=== PATIENT | male | born 2000 | race American Indian/Alaskan Native ===

== ENCOUNTER 2020-05-25 00:52 | Emergency (ER) | payer OTHER ==
[2020-05-25 01:27] VITALS: BP 129/85
== END 2020-05-25 06:16 | disposition left against medical advice (07) ==
LOC: ED 00:52
DX: Z04.1 Encounter for examination and observation following transport accident (principal); Z53.21 Procedure and treatment not carried out due to patient leaving prior to being seen by health care provider

== ENCOUNTER 2020-05-26 11:18 | Emergency (ER) | payer SELFPAY ==
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
[2020-05-26 11:29] VITALS: BP 125/61
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
== END 2020-05-26 13:08 | disposition home or self-care (01) ==
LOC: ED 11:18
DX: S16.1XXA Strain of muscle, fascia and tendon at neck level, initial encounter (principal); R51.9 Headache, unspecified; V89.2XXA Person injured in unspecified motor-vehicle accident, traffic, initial encounter; Y93.89 Activity, other specified; Y92.410 Unspecified street and highway as the place of occurrence of the external cause; Y99.8 Other external cause status
CPT/HCPCS: 70450; 72125; 72170